=== PATIENT | female | born 1950 | race Caucasian/White ===

== ENCOUNTER 2023-11-06 06:44 | Day surgery (SDC) | payer OTHER, SELFPAY ==
[2023-10-27 11:08] LABS: % Basophils 0.4 % (0-2); % Eosinophils 0.9 % (0-6); % Immature Granulocytes 0.2 % (0-0.5); % Lymphocytes 22.7 % (20.5-51.1); % Monocytes 5.7 % (1.7-9.3); % Neutrophils 70.1 % (42.2-75.2); Absolute Monocytes 0.3 10^3/uL (0.1-0.6); Absolute Neutrophils 3.2 10^3/uL (1.4-6.5); Hematocrit 37.8 % (37.0-47.0); Hemoglobin 12.8 g/dL (12.0-16.0); Mean Corp Hgb Conc. 33.9 g/dL (33.0-37.0); Mean Corpuscular Hgb 30.8 pg (27.0-31.0); Mean Corpuscular Volume 91.1 fL (81.0-99.0); Mean Platelet Volume 9.8 fL (7.4-10.4); Nucleated Red Blood Cells % 0 %; Platelet Count 198 10^3/uL (130-400); Red Blood Cell Count 4.15 10^6/uL (4.20-5.40); Red Cell Dist. Width 12.6 % (11.5-14.5); White Blood Cell Count 4.6 10^3/uL (4.8-10.8)
[2023-10-27 11:15] LABS: Urine Albumin Negative (Neg - Trace); Urine Bilirubin Negative (Negative); Urine Character Clear (Clear); Urine Color Yellow; Urine Glucose Negative (Negative); Urine Ketone Negative (Negative); Urine Leukocyte Negative (Negative); Urine Nitrite Negative (Negative); Urine Occult Blood Negative (Negative); Urine Specific Gravity 1.015 (<1.030); Urine Urobilinogen Negative (Neg - 1+)
[2023-10-27 11:35] LABS: APTT 33.2 Sec (23.4-35.0); INR 1.07; PT 13.7 Sec (11.4-14.6)
[2023-10-27 11:48] LABS: Blood Urea Nitrogen 21 mg/dl (7-17); Calcium 9.3 mg/dl (8.4-10.2); Carbon Dioxide 28 mmol/L (22-30); Chloride 102 mmol/L (98-107); Glucose 91 mg/dl (70-99); Potassium 4.2 mmol/L (3.5-5.1); Sodium 137 mmol/L (135-145); eGFR > 60.00
[2023-10-27 12:22] VITALS: BMI 35.0
[2023-11-06 08:49] VITALS: BP 130/67; BMI 35.0
[2023-11-06 08:56] LABS: Urine Albumin Negative (Neg - Trace); Urine Bilirubin Negative (Negative); Urine Glucose Negative (Negative); Urine Ketone Negative (Negative); Urine Leukocyte Negative (Negative); Urine Nitrite Negative (Negative); Urine Occult Blood Negative (Negative); Urine Specific Gravity 1.015 (<1.030); Urine Urobilinogen Negative (Neg - 1+)
[2023-11-06 08:57] LABS: Urine Character Clear (Clear); Urine Color Yellow
[2023-11-06] MEDS: NORMOSOL-R 1000 IV (09:25)
[2023-11-06 10:45] VITALS: BP 130/67; BP 93/34
[2023-11-06 11:00] VITALS: BP 105/41
[2023-11-06 11:19] VITALS: BP 134/64; BP 137/75
[2023-11-06 11:20] VITALS: BP 134/64; BP 137/75
[2023-11-06 11:50] VITALS: BP 147/70
== END 2023-11-06 12:20 | disposition home or self-care (01) ==
LOC: SDS 06:44
PROVIDERS: ATTENDING PHYSICIAN Urology; FAMILY PHYSICIAN Student in an Organized Health Care Education/Training Program
DX: N39.41 Urge incontinence (principal)
CPT/HCPCS: 64590; 64581; 36415; 72170; 76000; 80048; 81003; 85025; 85610; 85730; 87086; 93005; C1767; C1778; C1787; L8681

== ENCOUNTER → 2023-12-29 14:07 | Outpatient (REF) | payer OTHER, SELFPAY | LOC: RAD 14:07 | PROVIDERS: ATTENDING PHYSICIAN Obstetrics & Gynecology; FAMILY PHYSICIAN Student in an Organized Health Care Education/Training Program | DX: N39.41 Urge incontinence (principal); R35.0 Frequency of micturition | CPT/HCPCS: 76770 ==

== ENCOUNTER 2024-10-13 21:17 | Inpatient (IN) | payer OTHER, SELFPAY ==
[2024-10-13 17:52] VITALS: BP 159/83
[2024-10-13 18:04] LABS: % Basophils 0.2 % (0-2); % Eosinophils 1.1 % (0-6); % Immature Granulocytes 0.2 % (0-0.5); % Lymphocytes 26.2 % (20.5-51.1); % Monocytes 7.1 % (1.7-9.3); % Neutrophils 65.2 % (42.2-75.2); Absolute Eosinophils 0.1 10^3/uL (0-0.7); Absolute Lymphocytes 1.2 10^3/uL (1.2-3.4); Absolute Monocytes 0.3 10^3/uL (0.1-0.6); Absolute Neutrophils 2.9 10^3/uL (1.4-6.5); Hematocrit 39.4 % (37.0-47.0); Hemoglobin 13.4 g/dL (12.0-16.0); Mean Corpuscular Hgb 30.6 pg (27.0-31.0); Mean Platelet Volume 8.9 fL (7.4-10.4); Nucleated Red Blood Cells % 0 %; Platelet Count 189 10^3/uL (130-400); Red Blood Cell Count 4.38 10^6/uL (4.20-5.40); Red Cell Dist. Width 12.6 % (11.5-14.5); White Blood Cell Count 4.4 10^3/uL (4.8-10.8)
[2024-10-13 18:22] LABS: ALT (SGPT) 15 U/L (0-35); AST (SGOT) 30 U/L (14-36); Albumin 4.2 g/dl (3.5-5.0); Alkaline Phosphatase 90 U/L (38-126); Blood Urea Nitrogen 20 mg/dl (7-17); Calcium 9.5 mg/dl (8.4-10.2); Carbon Dioxide 26 mmol/L (22-30); Chloride 106 mmol/L (98-107); Glucose 92 mg/dl (70-99); Sodium 137 mmol/L (135-145); Total Bilirubin 0.8 mg/dl (0.2-1.3); Total Protein 7.5 g/dl (6.3-8.2); eGFR > 60.00
[2024-10-13 18:54] VITALS: BP 155/72
--- NOTE | 2024-10-13 19:13 | ED.GENMED ---
History of Present Illness
General
Chief Complaint: Skin Problem
Source: patient
Exam Limitations: none
Time Seen by Provider: 10/13/24 18:51
Nursing documentation reviewed up to this point in time: agreed with
History of Present Illness
History of Present Illness:
74-year-old female with a history of hypothyroidism, history of polio essentially wheelchair-bound at baseline who presents to the emergency room with her daughter for evaluation of worsening redness and pain in her right foot. Patient apparently
had a minor trauma to the second toe on the right foot and had some bleeding there a few days ago. She started to have some increasing redness and pain in the toe 2 days ago and ultimately went to urgent care and was told it was cellulitis. She
was started on doxycycline and has been taking this for 48 hours but has not noticed any improvement and in fact her symptoms have worsened now she has significant worsening of the redness and pain and redness is spread to the third toe. Came to
the ER for assessment. She has not had any fevers or chills. She denies any other complaints. She denies any known history of diabetes or vascular disease.
Review of Systems
Review of Systems
All Other Systems: ROS reviewed and negative except as documented in HPI and ROS
Constitutional: Denies fever
Musculoskeletal: Denies edema
Skin: Reports other (Redness, pain, swelling in her toes)
Phy Exam
Physical Exam
Physical Exam:
General: Awake and alert, sitting comfortably does not appear in distress
HEENT: protecting airway
Neck: appears supple
CV: No evidence of cyanosis
Resp: No accessory muscle use
Abd: Non-distended
Extremities: Patient's legs are warm to the touch with no significant edema; skin is dry and flaky; patient has significant erythema/purplish discoloration of the second and third toe on the right; she has a superficial abrasion to the tip of each
of these toes; toes are tender to the touch, indurated; she does have weakly palpable dorsalis pedis pulse on the right�by Doppler +DP and +PT pulses
Neuro: Alert
Psych: Normal affect
Scores
Heart Failure Risk
Heart Failure Risk Score: Not Applicable
Heart Score for Chest Pain Patients
STEMI patient?: Not applicable
Withdrawal Assessment of Alcohol
Withdrawal Assessment Completed?: Not applicable
Course
Orders/Labs/Results
Orders:
Orders
10/13/24 17:58
Complete Blood Count/With Diff Urgent
Comprehensive Metabolic Panel Urgent
10/13/24 19:03
CR Foot - Right Min 3 Views Urgent
Comment:
Reason For Exam: 3rd and 4th toe infection
10/13/24 19:10
Piperacillin/Tazo 3.375 Gram [Zosyn] 3.375 gram in 50 ml IV NOW
10/13/24 19:11
Vancomycin [Vancocin] 2,000 mg 0.9% Sodium Chloride 500 ml [Nss] 500 ml IV NOW
Abnormal Lab Results
10/13/24
17:58
WBC 4.4 L 10^3/uL
(4.8-10.8)
BUN 20 H mg/dl
(7-17)
Creatinine 0.5 L mg/dL
(0.6-1.0)
10/13/24 17:58
10/13/24 17:58
Vital Signs
Initial and Last Documented VS:
Initial Vital Signs
Temp Pulse Resp BP Pulse Ox
36.9 C 77 16 159/83 100
10/13/24 17:52 10/13/24 17:52 10/13/24 17:52 10/13/24 17:52 10/13/24 17:52
Last Documented Vital Signs
Temp Pulse Resp BP Pulse Ox
36.9 C 76 18 155/72 97
10/13/24 17:52 10/13/24 18:54 10/13/24 18:54 10/13/24 18:54 10/13/24 18:54
MDM/Problems Addressed
Differential Diagnosis Includes:
Cellulitis, osteomyelitis, gangrene
MDM/Problems Addressed:
74-year-old female presents with worsening redness and pain in second and third toes on the right foot. She has been on doxycycline x 48 hours but symptoms are worsening in the last. Vitals and exam as above. She had lab work sent off including a
CBC and CMP which showed no clinically significant abnormalities. Will check x-ray of the foot. Will plan to start on IV antibiotics given worsening symptoms despite p.o. antibiotics as an outpatient. Will plan for admission for treatment and
podiatry consultation. Case discussed with hospitalist.
*Radiology
Radiology exam reviewed: preliminary read by ED provider
*Pulse Oximetry
Patient hypoxic: no
*Critical Care Note
Total Time (30-74mins, 75-104mins- exclusive of procedures): Not Applicable
Data Reviewed
Source: patient and family
Patient Management
Discussion with other providers: Hospitalist (Discussed with hospitalist)
Escalation/DeEscalation of care consider admission/obs:
Admission indicated
ED Attending Note
-
Portions of this chart may have been created with voice recognition software.� Occasional wrong word or��sound alike� substitutions may have occurred due to the inherent limitations of voice recognition software.
Discharge Plan
Departure
Discharge Problem:
Infection of toe
Prescriptions:
No Action
acetaminophen 500 mg Tablet
500 mg PO BID
levothyroxine 75 mcg Tablet
75 mcg PO DAILY
brimonidine 0.2 % Drops
1 drp OPHTHALMIC (EYE) TID
carbidopa-levodopa 25-100 mg Tablet
0.5 tab PO QPM
Rx Instructions:
patient slowly increasing dosage, patient/daughter will bring bottle and instructions at admission.
gabapentin 100 mg Tablet
200 mg PO TID
dorzolamide-timolol (PF) 2-0.5 % Drops
1 drp OPHTHALMIC (EYE) BID
Gemtesa 75 mg Tablet
75 mg PO DAILY
Multivitamin 50 Plus
1 tab PO DAILY
azelastine 137 mcg (0.1 %) Aerosol,[place]
1 spray INTRANASAL BID
Interventions
Interventions:
*Risk Screen - Suicide Last Done: 10/13/24 17:53
*General Assessment Last Done: 10/13/24 18:50
*Neglect/Abuse Screening Last Done: 10/13/24 17:53
ED- Fall Risk Assessment Last Done: 10/13/24 18:52
*ED COVID-19 Vaccine History Last Done: 10/13/24 18:50
ED-Skin Assessment Last Done: 10/13/24 18:51
Discharge Date and Time
Print Language: MALTESE
[2024-10-13 19:35] VITALS: BP 135/64; BMI 34.1
[2024-10-13] MEDS: ZOSYN 50 IV (19:37)
[2024-10-13 20:25] VITALS: BP 121/58
[2024-10-13] MEDS: VANCOCIN 540 MG IV (20:27)
[2024-10-13 21:00] VITALS: BP 132/60
--- NOTE | 2024-10-13 21:00 | HPS.HSE ---
Addendum entered and electronically signed by Delfino Myers DO 10/13/24 22:17:
Patient seen and examined independently. Agree with findings and plan as set forth by Tran Maloney PA-C.
Patient is a 74y F with PMH significant for chronic post-polio syndrome and hypothyroidism who presents to ED complaining of redness and swelling of R 2nd and 3rd toes. Patient has chronic dry skin and frequent scaling of the feet. She has
chronic calluses on the pressure-bearing distal most aspects of all 10 toes. A few days ago, she developed some bleeding from the second and third toes on her R foot. She then developed some swelling and redness of these two digits. Patient was
seen at an Urgent Care and started on doxycycline. Unfortunately, her symptoms have not improved and she presents to the ED for further evaluation. She denies any systemic symptoms such as fevers / chills, etc.
Ass:
Right 2nd / 3rd Toe Cellulitis
Post-Polio Syndrome
Peripheral Neuropathy
Hypothyroidism
OAB
Plan:
Admit for further evaluation and treatment.
IV abx and local care.
Follow for clinical improvement.
Continue outpatient medications.
Original Note:
Family Physician
-
Family Physician:
Chief Complaint
-
Redness Right 2nd and 3rd Toes
History of Present Illness
Patient is a 74 y/o female past medical history of post-polio syndrome, and hypothyroidism who presents with worsening redness of the right 2nd and 3rd toes. Patient initially developed some mild erythema of the right 3rd toe. After a few days the
redness spread to the 2nd toe prompting her family to bring to urgent care at which time she was started on doxycycline. Despite being on antibiotics the redness has not improved and worsened slightly. Patient denies any fevers, sweats or chills.
Medical History
Past Medical History
Past Medical History: Reports Other
Additional Past Medical History:
Post-Polio Syndrome
Peripheral Neuropathy
Parkinsonism
Hypothyroidism
Overactive Bladder
Past Surgical History: Reports Other
Additional Past Surgical History:
Right Shoulder Rotator Cuff
Left Total Shoulder
Bladder Stimulator
Section
Social History
Tobacco: Non-smoker
Personal:
Living: With Family
Family History
Family History: Not pertinent
Allergies / Home Medications
Allergies reflects when Allergies were last updated in [facility].
Home Medications with original date entered in [facility]
Allergy/Medication List:
Allergies
Allergy/AdvReac Type Severity Reaction Status Date / Time
No Known Allergies Allergy Unverified 11/06/23 08:44
Home Medications
acetaminophen 500 mg tablet 1,000 mg PO BID PRN pain 11/01/23
brimonidine 0.2 % eye drops 1 drp ophthalmic (eye) DAILY 11/01/23
levothyroxine 75 mcg tablet 75 mcg PO DAILY 11/01/23
vibegron 75 mg tablet (Gemtesa) 75 mg PO DAILY 11/01/23
azelastine 137 mcg (0.1 %) nasal spray 1 spray intranasal BID 11/06/23
atropine 1 % eye drops 1 drp buccal BID PRN drooling 10/13/24
brinzolamide 1 % eye drops,suspension 1 drp ophthalmic (eye) TID 10/13/24
dorzolamide-timolol (PF) 2 %-0.5 % eye drops in a dropperette 1 drp ophthalmic (eye) BID 10/13/24
gabapentin 300 mg capsule 300 mg PO DAILY 10/13/24
gabapentin 300 mg capsule 600 mg PO BID 10/13/24
meloxicam 15 mg tablet 15 mg PO DAILY 10/13/24
tizanidine 2 mg capsule 2 mg PO DAILY PRN sleep 10/13/24
venlafaxine 37.5 mg capsule,extended release 24 hr 37.5 mg PO DAILY 10/13/24
Review of Systems
-
A 12 point ROS was completed and negative except as noted: Yes
Constitutional: Denies Fever or Chills
Respiratory: Denies Cough or Trouble Breathing
Cardiac: Denies Chest Pain or Palpitations
Physical Exam
Vital Signs
Vital Signs
Temp Pulse Resp BP Pulse Ox
98.4 F 77 18 155/72 97
10/13/24 17:52 10/13/24 20:28 10/13/24 20:28 10/13/24 18:54 10/13/24 18:54
Physical Exam
General: Comfortable and Conversant
HEENT: Anicteric and Moist mucous membranes
Respiratory: Clear and Non Labored Respirations
Cardiac: S1/S2 and Regular Rhythm
GI: Soft and Non Tender
Rectal: Deferred by Provider
Musculoskeletal: No Clubbing and No Cyanosis
Skin: Warm and Other (Right 2nd and 3rd Toes are deep red, almost purple in color. Some scabbing noted at the tips of the right 2nd and 3rd toes. Palpable pedal pulses)
Neuro: Awake, Alert, Oriented and Nonfocal/grossly intact
Psych: Calm
Laboratory Results
-
10/13/24 17:58
10/13/24 17:58
Laboratory Results
Total Bilirubin 0.8 mg/dl (0.2-1.3) 10/13/24 17:58
AST 30 U/L (14-36) 10/13/24 17:58
ALT 15 U/L (0-35) 10/13/24 17:58
Alkaline Phosphatase 90 U/L (38-126) 10/13/24 17:58
Data Reviewed
-
Diagnostic Radiology: Report Reviewed by me
Lab Data: Labs Reviewed by me
Impression/Plan
-
Cellulitis Right 2nd and 3rd Toes, failed outpatient antibiotics
-Consult Podiatry
-Continue Ancef
Post-Polio Syndrome
-Patient is mostly wheel-chair bound
-Continue venlafaxine
Peripheral Neuropathy
-Continue gabapentin
Hypothyroidism
-Continue levothyroxine
Overactive Bladder s/p Bladder Stimulator
-Continue Gemtesa
DVT Proph: Lovenox
Code Status: Full Code
[2024-10-13] MEDS: ANCEF 10 IV (22:36)
[2024-10-13 23:19] VITALS: BP 115/61; BMI 34.4
[2024-10-14] MEDS: ANCEF 10 IV ×3 (05:40→22:27)
[2024-10-14] MEDS: SYNTHROID 75 MCG PO (05:40)
[2024-10-14 06:00] VITALS: BMI 34.4
[2024-10-14 07:00] VITALS: BP 196/99
[2024-10-14 07:25] LABS: Hematocrit 36.4 % (37.0-47.0); Hemoglobin 12.4 g/dL (12.0-16.0); Mean Corp Hgb Conc. 34.1 g/dL (33.0-37.0); Mean Corpuscular Hgb 30.7 pg (27.0-31.0); Mean Corpuscular Volume 90.1 fL (81.0-99.0); Mean Platelet Volume 9.4 fL (7.4-10.4); Platelet Count 175 10^3/uL (130-400); Red Blood Cell Count 4.04 10^6/uL (4.20-5.40); Red Cell Dist. Width 12.6 % (11.5-14.5); White Blood Cell Count 4.6 10^3/uL (4.8-10.8)
[2024-10-14 07:55] LABS: Blood Urea Nitrogen 16 mg/dl (7-17); Carbon Dioxide 29 mmol/L (22-30); Chloride 106 mmol/L (98-107); Estimated Creatinine Clearance 79 ml/min; Glucose 88 mg/dl (70-99); Potassium 3.5 mmol/L (3.5-5.1); Sodium 140 mmol/L (135-145); eGFR > 60.00
[2024-10-14] MEDS: NEURONTIN 300 MG PO (08:11)
[2024-10-14] MEDS: EFFEXOR XR 37.5 MG PO (08:12)
[2024-10-14] MEDS: NON-FORMULARY ITEM 75 MG PO (08:12)
--- NOTE | 2024-10-14 10:46 | CM ---
Patient seen bedside.
IA completed.
Patient and spouse recently moved here from [place]
Patient lives with spouse in a 2 story home with no steps to enter.
Patient stays on on 1st floor.
Spouse is primary out of school hours care worker.
Has WC, electric WC, walker, 6 canes, handicap bathroom, and stair glide.
Patient does not ambulate, mostly WC bound, but can pivot with use of RW.
4 grown children live close by.
Son will transport home, daughter usually transports to appointments.
Patient has had [facility] in the past but does not feel she will need VN.
PCP: Dr Mueller
Pharmacy: [facility]
Plan: home, son will transport.
[2024-10-14] MEDS: DESENEX/MITRAZOL/ZEASORB 1 APPLIC TOPICAL ×2 (13:17→20:47)
[2024-10-14] MEDS: NEURONTIN 600 MG PO ×2 (13:20→20:46)
[2024-10-14 15:27] VITALS: BP 145/86
--- NOTE | 2024-10-14 15:44 | W.PN.HOSP.TC ---
Today's Communication/Plan
-
See plan
Assessment / Plan
Assessment / Plan
Impression:
Right foot second and third toe cellulitis with necrotic ulcers.
Other conditions:
Postpolio syndrome with chronic neuropathy and ambulatory dysfunction.
Parkinsonism
Hypothyroidism.
Overactive bladder
Plan:
Right foot second and third toe cellulitis with necrotic ulcers
No systemic evidence of infection
Check hemoglobin A1c
Check arterial ultrasound: ATIF PVR.
Check MRI with concern for osteomyelitis
Podiatry evaluation
Continue cefazolin
Post-Polio Syndrome
-Patient is mostly wheel-chair bound
-Continue venlafaxine
Peripheral Neuropathy
-Continue gabapentin
Hypothyroidism
-Continue levothyroxine
Overactive Bladder s/p Bladder Stimulator
-Continue Gemtesa
DVT Proph: Lovenox
Code Status: Full Code
Anticipated Discharge: 24 - 48 hours
Subjective/Interval History
-
Date of Service: October 14, 2024
Objective Data
-
Labs:
Laboratory Results
10/14/24
06:42
WBC 4.6 L
Hgb 12.4
Hct 36.4 L
Plt Count 175
Sodium 140
Potassium 3.5
Chloride 106
Carbon Dioxide 29
BUN 16
Creatinine 0.6
Glucose 88
Calcium 9.0
Vital Signs:
Vital Signs
Temp Pulse Resp BP Pulse Ox
97.7 F 71 18 145/86 96
10/14/24 15:27 10/14/24 15:27 10/14/24 15:27 10/14/24 15:27 10/14/24 15:27
I&O
10/13/24 10/14/24 10/15/24
06:59 06:59 06:59
Intake Total 240 / 240
Output Total 350 / 350
Balance -110 / -110
Physical Exam
-
General: Well Developed and No Apparent Distress
HEENT: Normocephalic, Atraumatic and Moist Mucous Membranes
Respiratory: Clear to Auscultation
Cardiac: Regular Rhythm and S1/S2; Negative Murmur, Rub or Gallop
GI: Soft, Nontender, Nondistended and Normal Bowel Sounds; Negative Organomegaly
Rectal: Deferred by Provider
Musculoskeletal: No Clubbing, No Cyanosis and No Edema
Skin: Negative Rash
Neuro: Nonfocal/Grossly Intact
[2024-10-14] MEDS: LOVENOX 40 MG SC (18:12)
--- NOTE | 2024-10-14 19:09 | CON.MD ---
Consultation - Medical
-
Pleasant 74 year old female, mostly wheelchair bound with post polio syndrome, presented to the ED with right foot swelling and redness and bleeding from the right 2nd and 3rd toes. Several days ago she recalls scraping her toes along a rough
throw rug and with her dry skin, notices bleeding from the right 2nd and 3rd toes. the next day she noticed the toes became red and swollen and went to urgent care where she received a prescription for Doxycycline. After 2 days the redness and
swelling increased in severity and she presented to the ED.
PMH includes post polio syndrome with peripheral neuropathy. She is afebrile with WBC wnl. Radiographs show contracted and deformed lesser digits but no cortical erosion indicating osteomyelitis. On exam, pedal pulses are palpable bilaterally
with non reducible contractures of toes 2-5 bilaterally. No cellulitis present at this time. 2nd and 3rd digits with dry eschar at the distal tip but well demarcated. No drainage noted. No edema of the toes noted. Similar areas of well
demarcated eschar present on left distal digits with no sign of infection.
Impression/Plan
-Cellulitis right LE resolving with dry eschar 2nd and 3rd digits distally
Infection appears to have resolved. I do not believe these are necrotic as pedal pulses are palpable and her status as wheelchair bound with neuropathy causes frequent trauma to toes
Lesions are stable and radiographs negative. No constitutional symptoms. No surgical intervention necessary at this time.
Recommend switch to oral antibiotics and follow up in my office in one week to monitor progress
-Post polio syndrome
[2024-10-14] MEDS: TYLENOL 650 MG PO (21:48)
[2024-10-14 23:50] VITALS: BP 152/82
[2024-10-15] MEDS: SYNTHROID 75 MCG PO (05:44)
[2024-10-15] MEDS: ANCEF 10 IV ×2 (05:44→13:29)
[2024-10-15 07:00] VITALS: BP 179/85
[2024-10-15] MEDS: EFFEXOR XR 37.5 MG PO (11:22)
[2024-10-15] MEDS: NEURONTIN 300 MG PO (11:22)
[2024-10-15] MEDS: DESENEX/MITRAZOL/ZEASORB 1 APPLIC TOPICAL (11:23)
[2024-10-15] MEDS: NON-FORMULARY ITEM 75 MG PO (11:23)
[2024-10-15] MEDS: NEURONTIN 600 MG PO (13:27)
--- NOTE | 2024-10-15 13:28 | W.DS.TRANS ---
DC Summary - School Examiner
-
Discharge Instructions:
Discharge Diagnosis/Procedures Impression:
Right foot second and third toe cellulitis with
necrotic ulcers.
Other conditions:
Postpolio syndrome with chronic neuropathy and
ambulatory dysfunction.
Parkinsonism
Hypothyroidism.
Overactive bladder
Diet Regular
Instructions:
Stand-Alone Forms:
Changes to Home Medications: Yes
Discharge Medications:
DC Medications w/original date entered in [facility]
acetaminophen 500 mg tablet 1,000 mg PO BID PRN pain 11/01/23
brimonidine 0.2 % eye drops 1 drp ophthalmic (eye) DAILY Eye Condition 11/01/23
levothyroxine 75 mcg tablet 75 mcg PO DAILY Thyroid 11/01/23
vibegron 75 mg tablet (Gemtesa) 75 mg PO DAILY Transplant 11/01/23
azelastine 137 mcg (0.1 %) nasal spray 1 spray intranasal BID Allergies 11/06/23
atropine 1 % eye drops 1 drp buccal BID PRN drooling 10/13/24
brinzolamide 1 % eye drops,suspension 1 drp ophthalmic (eye) TID Eye Condition 10/13/24
dorzolamide-timolol (PF) 2 %-0.5 % eye drops in a dropperette 1 drp ophthalmic (eye) BID Eye Condition 10/13/24
gabapentin 300 mg capsule 300 mg PO DAILY Neurological Condition 10/13/24
gabapentin 300 mg capsule 600 mg PO BID Neurological Condition 10/13/24
meloxicam 15 mg tablet 15 mg PO DAILY Pain 10/13/24
tizanidine 2 mg capsule 2 mg PO DAILY PRN sleep 10/13/24
venlafaxine 37.5 mg capsule,extended release 24 hr 37.5 mg PO DAILY Mental Health/Anxiety 10/13/24
cephalexin 500 mg capsule 500 mg PO Q8H #15 caps 10/15/24
Home Medication Changes
antibiotic for additional 5 days
Pending Results: No
[2024-10-15] MEDS: FLUAD (65 yr+) 2024-2025 FORMULA 0.5 ML IM (13:45)
[2024-10-15] MEDS: PREVNAR 20 0.5 ML IM (13:47)
--- NOTE | 2024-10-15 14:23 | CM ---
Addendum entered by Jessica Pearce 10/15/24 14:23:
Patient has declined visiting nurses, son to transport per patient.
Original Note:
Patient is for discharge to home today no needs.
Plan; Home no needs.
== END 2024-10-15 16:21 | disposition home or self-care (01) | DRG 603 ==
LOC: 4 WEST ACU 21:17
PROVIDERS: Physician Assistant Medical; ADMITTING PHYSICIAN Hospitalist; ATTENDING PHYSICIAN Internal Medicine; CONSULT PHYSICIAN Podiatrist Foot & Ankle Surgery; EMERGENCY PHYSICIAN Emergency Medicine; FAMILY PHYSICIAN Family Medicine
PROC: 3E02340 Introduction of Influenza Vaccine into Muscle, Percutaneous Approach (ICD-10-PCS; 2024-10-15)
PROC: 3E0234Z Introduction of Serum, Toxoid and Vaccine into Muscle, Percutaneous Approach (ICD-10-PCS; 2024-10-15)
DX: L03.031 Cellulitis of right toe (principal); G62.9 Polyneuropathy, unspecified; E03.9 Hypothyroidism, unspecified; G14 Postpolio syndrome; G20.C Parkinsonism, unspecified; L84 Corns and callosities; N32.81 Overactive bladder; Z99.3 Dependence on wheelchair; Z79.890 Hormone replacement therapy; Z79.899 Other long term (current) drug therapy; Z96.82 Presence of neurostimulator; Z23 Encounter for immunization
CPT/HCPCS: 73630; 73720; 80048; 80053; 85025; 85027; 90662; 90677; 93922; 93925; 96365; 96366; 96367; 99285; A9575; G0008; G0009